=== PATIENT | female | born 1995 | race Caucasian/White ===

== ENCOUNTER 2020-11-07 16:31 | Emergency (ER) | payer OTHER ==
[~2020-11-07] VITALS: Ht 167.6 cm; Wt 102.3 kg
[2020-11-07 16:43] VITALS: TEMP 98.9
[2020-11-07 17:59] LABS: BASO % 0.3 % (0.0-2.0); EOS % 0.4 % (0-4.0); GRAN # 6.8 (1.4-6.5); GRAN % 72.2 % (42.2-75.2); HEMATOCRIT 40.3 % (37.0-47.0); HEMOGLOBIN 13.6 g/dl (12.5-16.0); LYMPH % 21.3 % (20.0-51.0); MEAN CELL VOLUME 89 fl (80.0-100.0); MEAN CORPUSCULAR HEMOGLOBIN 30 pg (27.0-31.0); MEAN CORPUSCULAR HGB CONC 34 g/dl (33.0-37.0); MONO # 0.5 (0.1-0.6); MONO % 5.6 % (1.7-9.3); PLATELET COUNT 239 K/mm3 (130-400); RED BLOOD COUNT 4.54 M/mm3 (4.10-5.30); REDCELL DISTRIBUTION WIDTH-CV 12.5 % (11.5-14.5)
[2020-11-07 18:09] LABS: ALANINE AMINOTRANSFERASE 15 U/L (4-34); ALBUMIN 5.2 gm/dL (3.5-5.0); ALKALINE PHOSPHATASE 78 U/L (50-136); ANION GAP 12 mmol/L (7-16); AST,SGOT 21 U/L (15-37); BILIRUBIN,TOTAL 0.4 mg/dL (0.0-1.0); BLOOD UREA NITROGEN 16 mg/dL (7-17); CALCIUM 10.3 mg/dL (8.4-10.2); CARBON DIOXIDE 20 mmol/L (22-30); CHLORIDE 109 mmol/L (98-107); CREATININE, serum 0.54 (0.52-1.25); GLUCOSE 99 mg/dL (74-106); POTASSIUM 3.9 mmol/L (3.4-5.0); SODIUM 141 mmol/L (137-145); TOTAL PROTEIN 8.6 gm/dL (6.4-8.2)
[2020-11-07 19:07] VITALS: BP 121/83; PULSE 68
[2020-11-07] MEDS ORDERED: SEROQUEL 1100 MG/TAB PO (20:35)
[2020-11-07] MEDS ORDERED: NEURONTIN300 MG/CAP PO (20:36)
[2020-11-07] MEDS ORDERED: MOBIC15 MG PO (20:36)
[2020-11-07] MEDS ORDERED: SINGULAIR 110 MG/TAB PO (20:36)
[2020-11-07 20:43] LABS: TROPONIN-I < 0.012 ng/mL (0.000-0.035)
== END 2020-11-07 19:07 | disposition home or self-care (01) ==
LOC: COL.ER 16:31
PROVIDERS: Physician Assistant
DX: R42 Dizziness and giddiness (principal); Z82.49 Family history of ischemic heart disease and other diseases of the circulatory system; Z82.3 Family history of stroke

== ENCOUNTER → 2020-11-20 | Outpatient (CLI) | payer OTHER ==
[~2020-11-20] MED LIST: MOBIC15 MG PO; NEURONTIN300 MG/CAP PO; SEROQUEL 1100 MG/TAB PO; SINGULAIR 110 MG/TAB PO
== END ==
LOC: COL.RAD 13:04
DX: M41.84 Other forms of scoliosis, thoracic region (principal)

== ENCOUNTER 2021-01-09 10:30 | Outpatient (RCR) | payer OTHER | END 2021-03-25 | disposition home or self-care (01) | LOC: MKS.ESL.PT | DX: M41.9 Scoliosis, unspecified (principal) ==